=== PATIENT | male | born 1955 | race Caucasian/White ===

== ENCOUNTER 2016-12-13 08:21 | Day surgery (SDC) | payer BC, OTHER ==
[2016-12-13 09:12] VITALS: TEMP 97.8; BMI 28.2
[2016-12-13 11:29] VITALS: BP 148/87; PULSE 62
--- NOTE | 2016-12-16 13:07 | PATH ---
Surgical Pathology Report Patient Name: MIGNON SANCHES [facility]. Rec. #: [id number] /Age/Gender: 1955 (Age: 61) / M Account: [id number] Location: [facility]-ENDOSCOPY Taken: 12/13/2016 Received: 12/13/2016 Reported: 12/16/2016 Physicians: Chai Morales M.D. Specimen(s) Received A: BX ANTRUM B: BX GE JUNCTION C: BX CECUM Clinical History GERD, history of H. Pylori, constipation Gastritis, diverticulosis, hemorrhoids Final Diagnosis A. STOMACH, ANTRUM, BIOPSY: GASTRIC ANTRAL AND OXYNTIC MUCOSA WITH MILD TO MODERATE CHRONIC GASTRITIS AND REACTIVE GASTROPATHY. IMMUNOSTAIN FOR H. PYLORI IS NEGATIVE FOR ORGANISMS. B. GE JUNCTION, BIOPSY: SQUAMOUS EPITHELIUM WITH CHRONIC INFLAMMATION AND REFLUX TYPE CHANGES: NO COLUMNAR EPITHELIUM PRESENT (NO INTESTINAL METAPLASIA/HERNÁNDEZ'S ESOPHAGUS IDENTIFIED). C. COLON, CECUM, BIOPSY: POLYPOID FRAGMENT OF COLONIC MUCOSA WITH ACTIVE INFLAMMATION AND REACTIVE LYMPHOID AGGREGATES, MOST SUGGESTIVE OF INFLAMMATORY-TYPE POLYP. NO DYSPLASIA/ADENOMA IDENTIFIED. Electronically Signed Jeferson Garcia M.D. Gross Description A. Received in formalin, labeled "biopsy antrum" are 3 swan, irregular portions of soft tissue ranging from 0.1-0.5 cm in greatest dimension. The specimens are submitted in toto in one cassette. B. Received in formalin, labeled "biopsy GE junction" is a swan, irregular portion of soft tissue measuring 0.3 cm in greatest dimension. The specimen is submitted in toto in one cassette. C. Received in formalin, labeled "biopsy cecum" are 2 swan, irregular portions of soft tissue measuring 0.1 and 0.7 cm in greatest dimension. The specimens are submitted in toto in one cassette. DL12/13/201612/13/2016
== END 2016-12-13 11:29 | disposition home or self-care (01) ==
LOC: JASU-ENDO 08:21
PROVIDERS: ATTEND Internal Medicine Gastroenterology
PROC: 0DB48ZX Excision of Esophagogastric Junction, Via Natural or Artificial Opening Endoscopic, Diagnostic (ICD-10-PCS; 2016-12-13)
PROC: 0DB68ZX Excision of Stomach, Via Natural or Artificial Opening Endoscopic, Diagnostic (ICD-10-PCS; 2016-12-13)
PROC: 0DBH8ZX Excision of Cecum, Via Natural or Artificial Opening Endoscopic, Diagnostic (ICD-10-PCS; principal; 2016-12-13 09:30)
DX: Z86.010 Personal history of colon polyps (principal); K62.5 Hemorrhage of anus and rectum; K57.30 Diverticulosis of large intestine without perforation or abscess without bleeding; K64.8 Other hemorrhoids; K29.50 Unspecified chronic gastritis without bleeding; K31.9 Disease of stomach and duodenum, unspecified; E03.9 Hypothyroidism, unspecified; E11.9 Type 2 diabetes mellitus without complications; K21.9 Gastro-esophageal reflux disease without esophagitis
CPT/HCPCS: 88305-TC; 88342-TC